=== PATIENT | male | born 1965 | race Caucasian/White ===

== ENCOUNTER 2019-04-01 11:11 | Emergency (ER) | payer BC ==
[2019-04-01] MEDS ORDERED: Sodium Chloride 0.9% 10 ML Syringe FLUSH PRN (11:35)
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
[2019-04-01] MEDS ORDERED: Iopamidol 612 MG/ML 100 ML Bottle IVPUSH ONE (11:48)
[2019-04-01] MEDS ORDERED: Sodium Chloride 0.9% 10 ML Syringe FLUSH ONE (11:48)
--- NOTE | 2019-04-01 12:47 | CT ---
CT chest Technique: Multiple axial sections were obtained from above the lung apices inferiorly through the lung bases. Intravenous contrast was utilized. Comparison: No previous chest imaging. Findings: Mediastinum and hilar region show no adenopathy or mass. Prior sternotomy is noted for CABG. No pericardial thickening is seen. Heart size is normal. Lungs show no acute parenchymal change. Incidental scar within the left base as well as calcified granuloma is noted within the left base. No pneumothorax or pleural effusions are seen. Bone window settings were reviewed which shows no compression deformities within the spine. Slightly displaced rib fracture is noted within the left 12th rib as well as additional displaced fracture within the left 11th rib posteriorly. Slightly displaced fracture is noted within the posterior lateral 10th rib. Fractures are noted within the transverse process on the left side of L1 and L2. Impression: 1. 3 left lower rib fractures showing displacement. Fractures within the transverse process on the left side of L1 and L2. 2. Slight scarring within the left lung base. Incidental calcified granuloma within left lung base. 3. No other acute abnormality is appreciated on CT study of the chest. Diagnostic code #3 CT abdomen and pelvis Technique: Multiple axial sections were obtained from above the dome of the diaphragm inferiorly through the pubic symphysis. Intravenous contrast was utilized. No oral contrast has been given. Comparison: No prior abdominal or pelvic imaging. Findings: Small low density finding is seen in a subcapsular location within the medial and inferior liver. This finding measures approximately 4.1 x 2.6 cm. This could possibly represent small area of subcapsular hemorrhage. Difficult to completely exclude a subcapsular mass. No additional liver abnormality is seen. Spleen appears within normal limits. Adrenal glands show no nodule. Pancreas is within normal limits. Kidneys show symmetric contrast enhancement without hydronephrosis or mass. Aorta shows no aneurysm. No retroperitoneal adenopathy or mesenteric abnormalities are seen. No pelvic mass or adenopathy is seen. Diverticuli are seen within the sigmoid colon. No inflammatory change of diverticulitis is seen at this time. Bone window settings were reviewed which again shows the previously described left lower rib fractures and transverse process fractures within the lumbar spine. No other acute osseous abnormality seen within the lumbar spine or pelvis. Impression: 1. Low density finding in a subcapsular location within the medial and inferior liver. This may represent small subcapsular hemorrhage with measurements as noted above. Difficult to completely exclude a peripheral liver mass at this time. Follow-up recommended in 3-4 months (June or July) to further evaluate. 2. Left lower rib fractures and left transverse process fractures are again noted as described above. 3. Incidental sigmoid diverticuli without diverticulitis. 4. No other acute abnormality is appreciated. Diagnostic code #9
--- NOTE | 2019-04-02 11:06 | CR ---
Left shoulder: Three views of the left shoulder were obtained. Comparison: No previous study. Glenohumeral joint and acromioclavicular joint appears within normal limits. No fracture, dislocation or other bony abnormality is seen. Impression: 1. No abnormality is identified on left shoulder exam. Diagnostic code #1
== END 2019-04-01 13:15 | disposition home or self-care (01) ==
LOC: JD.ED 11:11
DX: S22.42XA Multiple fractures of ribs, left side, initial encounter for closed fracture (principal); S32.029A Unspecified fracture of second lumbar vertebra, initial encounter for closed fracture; S32.019A Unspecified fracture of first lumbar vertebra, initial encounter for closed fracture; I10 Essential (primary) hypertension; E78.00 Pure hypercholesterolemia, unspecified; Z79.82 Long term (current) use of aspirin; Z79.899 Other long term (current) drug therapy; V89.2XXA Person injured in unspecified motor-vehicle accident, traffic, initial encounter
CPT/HCPCS: 71260; 73030; 74177; 99284; Q9967